=== PATIENT | female | born 1960 | race African-American/Black ===

== ENCOUNTER 2021-11-26 13:51 | Inpatient (IN) | payer OTHER ==
[2021-11-26] MEDS ORDERED: METHOCARBAMOL 500 MG TABLET PO PRN (15:20)
[2021-11-26] MEDS ORDERED: MAG HYDROX/AL HYDROX/SIMETH 30 ML UNIT-DOSE CUP PO PRN (15:20)
[2021-11-26] MEDS ORDERED: ONDANSETRON *ODT* 4 MG TABLET SL PRN (15:20)
[2021-11-26] MEDS ORDERED: MAGNESIUM HYDROX 2400MG/30ML ORAL SUSPENSION 30 ML CUP PO PRN (15:20)
[2021-11-26] MEDS ORDERED: chlordiazePOXIDE HCL 25 MG CAPSULE PO PRN (15:20)
[2021-11-26] MEDS ORDERED: ACETAMINOPHEN 325 MG TABLET (FP) PO PRN ×2 (15:20)
[2021-11-26] MEDS ORDERED: MAGNESIUM CITRATE 300 ML BOTTLE PO PRN (15:20)
[2021-11-26] MEDS ORDERED: NICOTINE 10 MG CARTRIDGE (INHALER) IH PRN (15:20)
[2021-11-26] MEDS ORDERED: MENTHOL/PHENOL 1 EACH UD MM PRN (15:20)
[2021-11-26] MEDS ORDERED: BISMUTH SUBSALICYLATE 524 MG/30 ML PO PRN (15:20)
[2021-11-26 16:51] VITALS: BMI 26.5
[2021-11-26] MEDS ORDERED: ALBUTEROL SO4 HFA INHALER IH PRN (17:23)
[2021-11-26] MEDS: IBUPROFEN 400 MG TABLET (FP) PO PRN (18:15)
[2021-11-26] MEDS: hydrOXYzine PAMOATE 25 MG CAPSULE (FP) PO SCH ×2 (18:16→22:38)
[2021-11-26] MEDS: chlordiazePOXIDE HCL 25 MG CAPSULE PO SCH ×2 (18:16→22:38)
[2021-11-26] MEDS: THIAMINE HCL 100 MG TABLET (FP) PO SCH (22:38)
[2021-11-26] MEDS: MELATONIN 5 MG TABLETS PO SCH (22:38)
[2021-11-26] MEDS: AMOXICILLIN 500 MG CAPSULE (FP) PO SCH (22:38)
[2021-11-27] MEDS: chlordiazePOXIDE HCL 25 MG CAPSULE PO SCH ×4 (07:16→22:13)
[2021-11-27] MEDS: hydrOXYzine PAMOATE 25 MG CAPSULE (FP) PO SCH ×5 (07:17→22:12)
[2021-11-27] MEDS: IBUPROFEN 400 MG TABLET (FP) PO PRN (08:45)
[2021-11-27] MEDS ORDERED: methaDONE HCL 10 MG TABLET PO ONE (09:46)
[2021-11-27] MEDS ORDERED: methaDONE 40 MG, methaDONE 20 MG PO ONE (10:00)
[2021-11-27] MEDS ORDERED: methaDONE HCL 10 MG TABLET ONE (10:27)
[2021-11-27] MEDS ORDERED: methaDONE HCL 40 MG DISPERSABLE TABLET ONE (10:28)
[2021-11-27] MEDS: AMOXICILLIN 500 MG CAPSULE (FP) PO SCH ×2 (10:30→22:12)
[2021-11-27] MEDS: PRENATAL VITAMINS W/ FOLIC ACID TABLET (FP) PO SCH (10:30)
[2021-11-27 10:51] LABS: HEMATOCRIT 41.4 % (32.4-45.2); HEMOGLOBIN 13.7 GM/dL (10.7-15.3); MCH 29.7 pg (25.7-33.7); MEAN CELL VOLUME 90.1 fl (80-96); MEAN PLT VOLUME 8.9 fl (7.5-11.1); PLATELET COUNT 234 10^3/uL (134-434); RBC 4.59 M/mm3 (3.60-5.2); RDW 14.9 % (11.6-15.6); WHITE BLOOD COUNT 6.8 K/mm3 (4.0-10.0)
[2021-11-27 11:07] LABS: CALCIUM 8.7 mg/dL (8.5-10.1)
[2021-11-27 11:08] LABS: ALBUMIN 2.6 g/dl (3.4-5.0); BLOOD UREA NITROGEN 12.9 mg/dL (7-18)
[2021-11-27 11:11] LABS: CREATININE 0.9 mg/dL (0.55-1.3)
[2021-11-27 11:12] LABS: BILIRUBIN,TOTAL 0.4 mg/dL (0.2-1); TOT PROT 6.8 g/dl (6.4-8.2)
[2021-11-27] MEDS ORDERED: DOCUSATE SODIUM 100 MG CAPSULE (FP) PO SCH (22:00)
[2021-11-27] MEDS: THIAMINE HCL 100 MG TABLET (FP) PO SCH (22:12)
[2021-11-27] MEDS: MELATONIN 5 MG TABLETS PO SCH (22:12)
[2021-11-28] MEDS ORDERED: methaDONE HCL 10 MG TABLET ONE (04:24)
[2021-11-28] MEDS ORDERED: methaDONE HCL 40 MG DISPERSABLE TABLET ONE (04:24)
[2021-11-28] MEDS: hydrOXYzine PAMOATE 25 MG CAPSULE (FP) PO SCH ×5 (05:54→22:38)
[2021-11-28] MEDS: chlordiazePOXIDE HCL 25 MG CAPSULE PO SCH ×4 (05:55→22:40)
[2021-11-28] MEDS: IBUPROFEN 400 MG TABLET (FP) PO PRN (05:56)
[2021-11-28] MEDS ORDERED: methaDONE HCL 10 MG TABLET PO ONE (06:00)
[2021-11-28] MEDS ORDERED: methaDONE 40 MG, methaDONE 30 MG PO ONE (06:00)
[2021-11-28] MEDS: PRENATAL VITAMINS W/ FOLIC ACID TABLET (FP) PO SCH (10:28)
[2021-11-28] MEDS: AMOXICILLIN 500 MG CAPSULE (FP) PO SCH ×2 (10:29→22:38)
[2021-11-28] MEDS: DOCUSATE SODIUM 100 MG CAPSULE (FP) PO SCH ×2 (12:53→22:38)
[2021-11-28] MEDS: MELATONIN 5 MG TABLETS PO SCH (22:38)
[2021-11-28] MEDS: THIAMINE HCL 100 MG TABLET (FP) PO SCH (22:38)
[2021-11-29] MEDS ORDERED: chlordiazePOXIDE HCL 10 MG CAPSULE PO PRN
[2021-11-29] MEDS: hydrOXYzine PAMOATE 25 MG CAPSULE (FP) PO SCH ×5 (05:46→22:33)
[2021-11-29] MEDS: chlordiazePOXIDE HCL 10 MG CAPSULE PO SCH ×4 (05:46→22:33)
[2021-11-29] MEDS: methaDONE HCL 40 MG DISPERSABLE TABLET PO SCH (05:50)
[2021-11-29] MEDS ORDERED: methaDONE HCL 10 MG TABLET PO SCH (06:00)
[2021-11-29] MEDS: DOCUSATE SODIUM 100 MG CAPSULE (FP) PO SCH ×2 (10:24→22:33)
[2021-11-29] MEDS: AMOXICILLIN 500 MG CAPSULE (FP) PO SCH ×3 (10:24→22:33)
[2021-11-29] MEDS: PRENATAL VITAMINS W/ FOLIC ACID TABLET (FP) PO SCH (10:24)
[2021-11-29] MEDS: THIAMINE HCL 100 MG TABLET (FP) PO SCH (22:33)
[2021-11-29] MEDS: MELATONIN 5 MG TABLETS PO SCH (22:33)
[2021-11-30] MEDS: methaDONE HCL 40 MG DISPERSABLE TABLET PO SCH (06:21)
[2021-11-30] MEDS: chlordiazePOXIDE HCL 10 MG CAPSULE PO SCH ×2 (06:22→17:34)
[2021-11-30] MEDS: hydrOXYzine PAMOATE 25 MG CAPSULE (FP) PO SCH ×5 (06:22→22:18)
[2021-11-30] MEDS: AMOXICILLIN 500 MG CAPSULE (FP) PO SCH ×3 (06:22→22:17)
[2021-11-30] MEDS: DOCUSATE SODIUM 100 MG CAPSULE (FP) PO SCH ×2 (10:22→22:17)
[2021-11-30] MEDS: PRENATAL VITAMINS W/ FOLIC ACID TABLET (FP) PO SCH (10:22)
[2021-11-30] MEDS: MELATONIN 5 MG TABLETS PO SCH (22:18)
[2021-11-30] MEDS: THIAMINE HCL 100 MG TABLET (FP) PO SCH (22:18)
[2021-12-01] MEDS ORDERED: chlordiazePOXIDE HCL 10 MG CAPSULE PO ONE (05:00)
[2021-12-01] MEDS: methaDONE HCL 40 MG DISPERSABLE TABLET PO SCH (05:50)
[2021-12-01] MEDS: AMOXICILLIN 500 MG CAPSULE (FP) PO SCH (05:51)
[2021-12-01] MEDS: hydrOXYzine PAMOATE 25 MG CAPSULE (FP) PO SCH (05:52)
[2021-12-01 09:51] VITALS: BP 140/82; PULSE 85; TEMP 97.1
== END 2021-12-01 10:31 | disposition home or self-care (01) | DRG 773 ==
LOC: YASAS 13:51 → Y3N 16:50
PROVIDERS: ADMIT Allergy & Immunology; ATTEND Allergy & Immunology
PROC: HZ2ZZZZ Detoxification Services for Substance Abuse Treatment (ICD-10-PCS; principal; 2021-11-26)
DX: F10.230 Alcohol dependence with withdrawal, uncomplicated (principal); F11.20 Opioid dependence, uncomplicated; F17.210 Nicotine dependence, cigarettes, uncomplicated; E88.09 Other disorders of plasma-protein metabolism, not elsewhere classified; J45.909 Unspecified asthma, uncomplicated; M27.2 Inflammatory conditions of jaws
CPT/HCPCS: 36415; 70100-TC-FY; 80053; 85027; 86780; C9803; U0003; U0005

== ENCOUNTER 2023-07-23 13:37 | Inpatient (IN) | payer OTHER ==
[2023-07-23 14:59] VITALS: BMI 21.9
[2023-07-23] MEDS ORDERED: DICYCLOMINE HCL 10 MG CAPSULE PO PRN (16:10)
[2023-07-23] MEDS ORDERED: IBUPROFEN 400 MG TABLET (FP) PO PRN (16:10)
[2023-07-23] MEDS ORDERED: ACETAMINOPHEN 325 MG TABLET (FP) PO PRN (16:10)
[2023-07-23] MEDS ORDERED: POLYETHYLENE GLYCOL (HEALTHYLAX) 3350 17 GM PACKET PO PRN (16:10)
[2023-07-23] MEDS ORDERED: LOPERAMIDE HCL 2 MG CAPSULE PO PRN (16:10)
[2023-07-23] MEDS ORDERED: BISMUTH SUBSALICYLATE 524 MG/30 ML PO PRN (16:10)
[2023-07-23] MEDS ORDERED: hydrOXYzine PAMOATE 25 MG CAPSULE (FP) PO PRN (16:10)
[2023-07-23] MEDS ORDERED: IBUPROFEN 600 MG TABLET (FP) PO PRN (16:10)
[2023-07-23] MEDS ORDERED: chlordiazePOXIDE HCL 25 MG CAPSULE PO PRN (16:10)
[2023-07-23] MEDS ORDERED: NALOXONE HCL (KLOXXADO) 8 MG SPRAY NS PRN (16:10)
[2023-07-23] MEDS ORDERED: ONDANSETRON *ODT* 4 MG TABLET SL PRN (16:10)
[2023-07-23] MEDS ORDERED: guaiFENesin 600 MG TABLET.ER (FP) PO PRN (16:10)
[2023-07-23] MEDS ORDERED: NALOXONE HCL 0.4 MG/ML VIAL IM PRN (16:10)
[2023-07-23] MEDS ORDERED: BENZONATATE 200 MG CAPSULE PO PRN (16:10)
[2023-07-23] MEDS ORDERED: BENZOCAINE/MENTHOL (CHLORASEPTIC ) LOZENGE MM PRN (16:10)
[2023-07-23] MEDS ORDERED: MAG HYDROX/AL HYDROX/SIMETH 30 ML UNIT-DOSE CUP PO PRN (16:10)
[2023-07-23] MEDS: METHOCARBAMOL 500 MG TABLET PO PRN (18:34)
[2023-07-23] MEDS: NICOTINE 7 MG/24 HOURS TOPICAL PATCH TD SCH (18:34)
[2023-07-23] MEDS: PRENATAL VITAMINS W/ FOLIC ACID TABLET (FP) PO SCH (18:35)
[2023-07-23] MEDS: MELATONIN 5 MG TABLETS PO SCH (22:11)
[2023-07-23] MEDS: DOCUSATE SODIUM 100 MG CAPSULE (FP) PO SCH (22:11)
[2023-07-23] MEDS: THIAMINE HCL 100 MG TABLET (FP) PO SCH (22:12)
[2023-07-23] MEDS: chlordiazePOXIDE HCL 25 MG CAPSULE PO SCH (22:12)
[2023-07-24] MEDS: chlordiazePOXIDE HCL 25 MG CAPSULE PO SCH ×4 (05:44→22:14)
[2023-07-24] MEDS ORDERED: methaDONE HCL 10 MG TABLET PO SCH (09:30)
[2023-07-24] MEDS ORDERED: methaDONE 40 MG, methaDONE 30 MG PO ONE (10:00)
[2023-07-24] MEDS: NICOTINE 7 MG/24 HOURS TOPICAL PATCH TD SCH (10:04)
[2023-07-24] MEDS: PRENATAL VITAMINS W/ FOLIC ACID TABLET (FP) PO SCH (10:04)
[2023-07-24 11:04] LABS: POTASSIUM 4.6 mmol/L (3.5-5.1)
[2023-07-24 11:06] LABS: HEMATOCRIT 41.3 % (32.4-45.2); HEMOGLOBIN 13.6 GM/dL (10.7-15.3); MCH 30.2 pg (25.7-33.7); MCHC 32.9 g/dl (32.0-36.0); MEAN CELL VOLUME 91.7 fl (80-96); PLATELET COUNT 253 10^3/uL (134-434); RDW 14.8 % (11.6-15.6); WHITE BLOOD COUNT 5.6 K/mm3 (4.0-10.0)
[2023-07-24 11:11] LABS: BLOOD UREA NITROGEN 15.3 mg/dL (7-18); CALCIUM 9.1 mg/dL (8.5-10.1)
[2023-07-24 11:13] LABS: CREATININE 0.7 mg/dL (0.55-1.3)
[2023-07-24 11:14] LABS: BILIRUBIN,TOTAL 0.6 mg/dL (0.2-1); TOT PROT 6.6 g/dl (6.4-8.2)
[2023-07-24] MEDS: DOCUSATE SODIUM 100 MG CAPSULE (FP) PO SCH (22:13)
[2023-07-24] MEDS: THIAMINE HCL 100 MG TABLET (FP) PO SCH (22:13)
[2023-07-24] MEDS: MELATONIN 5 MG TABLETS PO SCH (22:13)
[2023-07-25] MEDS: methaDONE 40 MG, methaDONE 30 MG PO SCH (05:26)
[2023-07-25] MEDS: chlordiazePOXIDE HCL 25 MG CAPSULE PO SCH ×4 (05:26→22:14)
[2023-07-25] MEDS: PRENATAL VITAMINS W/ FOLIC ACID TABLET (FP) PO SCH (10:08)
[2023-07-25] MEDS: NICOTINE 7 MG/24 HOURS TOPICAL PATCH TD SCH (10:10)
[2023-07-25] MEDS: MAGNESIUM HYDROX 2400MG/30ML ORAL SUSPENSION 30 ML CUP PO PRN (17:26)
[2023-07-25] MEDS: THIAMINE HCL 100 MG TABLET (FP) PO SCH (22:14)
[2023-07-25] MEDS: DOCUSATE SODIUM 100 MG CAPSULE (FP) PO SCH (22:14)
[2023-07-25] MEDS: MELATONIN 5 MG TABLETS PO SCH (22:14)
[2023-07-26] MEDS ORDERED: chlordiazePOXIDE HCL 10 MG CAPSULE PO PRN
[2023-07-26] MEDS: chlordiazePOXIDE HCL 10 MG CAPSULE PO SCH ×4 (05:33→22:07)
[2023-07-26] MEDS: methaDONE 40 MG, methaDONE 30 MG PO SCH (05:35)
[2023-07-26] MEDS ORDERED: LACTULOSE 20 GM/30 ML UDC (FOR ORAL USE ONLY) PO ONE (10:15)
[2023-07-26] MEDS: PRENATAL VITAMINS W/ FOLIC ACID TABLET (FP) PO SCH (10:25)
[2023-07-26] MEDS: NICOTINE 7 MG/24 HOURS TOPICAL PATCH TD SCH (10:25)
[2023-07-26 13:48] LABS: HIV INTERPRETATION NEGATIVE (NEGATIVE)
[2023-07-26] MEDS: ALBUTEROL SO4 HFA INHALER IH PRN ×2 (17:42→22:07)
[2023-07-26] MEDS: DOCUSATE SODIUM 100 MG CAPSULE (FP) PO SCH (22:07)
[2023-07-26] MEDS: THIAMINE HCL 100 MG TABLET (FP) PO SCH (22:07)
[2023-07-26] MEDS: MELATONIN 5 MG TABLETS PO SCH (22:07)
[2023-07-27] MEDS: chlordiazePOXIDE HCL 10 MG CAPSULE PO SCH ×2 (05:34→17:55)
[2023-07-27] MEDS: methaDONE 40 MG, methaDONE 30 MG PO SCH (05:35)
[2023-07-27] MEDS: ALBUTEROL SO4 HFA INHALER IH PRN (05:36)
[2023-07-27] MEDS ORDERED: LACTULOSE 20 GM/30 ML UDC (FOR ORAL USE ONLY) PO PRN (09:20)
[2023-07-27] MEDS ORDERED: DOCUSATE SODIUM 100 MG CAPSULE (FP) PO SCH (09:21)
[2023-07-27] MEDS: NICOTINE 7 MG/24 HOURS TOPICAL PATCH TD SCH (10:07)
[2023-07-27] MEDS: PRENATAL VITAMINS W/ FOLIC ACID TABLET (FP) PO SCH (10:07)
[2023-07-27] MEDS: MAGNESIUM HYDROX 2400MG/30ML ORAL SUSPENSION 30 ML CUP PO PRN (10:09)
[2023-07-27] MEDS: THIAMINE HCL 100 MG TABLET (FP) PO SCH (21:20)
[2023-07-27] MEDS: METHOCARBAMOL 500 MG TABLET PO PRN (21:20)
[2023-07-27] MEDS: MELATONIN 5 MG TABLETS PO SCH (21:20)
[2023-07-28] MEDS ORDERED: chlordiazePOXIDE HCL 10 MG CAPSULE PO ONE (05:00)
[2023-07-28] MEDS: methaDONE 40 MG, methaDONE 30 MG PO SCH (05:26)
[2023-07-28 06:37] VITALS: RESP 17
[2023-07-28] MEDS: ALBUTEROL SO4 HFA INHALER IH PRN (08:47)
[2023-07-28 09:20] VITALS: BP 112/78; PULSE 65; TEMP 97.4
[2023-07-28] MEDS: PRENATAL VITAMINS W/ FOLIC ACID TABLET (FP) PO SCH (10:24)
[2023-07-28] MEDS: NICOTINE 7 MG/24 HOURS TOPICAL PATCH TD SCH (10:25)
== END 2023-07-28 12:35 | disposition home or self-care (01) | DRG 773 ==
LOC: YASAS 13:37 → Y3N 16:48
PROVIDERS: ADMIT Allergy & Immunology; ATTEND Surgery
PROC: HZ2ZZZZ Detoxification Services for Substance Abuse Treatment (ICD-10-PCS; principal; 2023-07-23)
DX: F10.230 Alcohol dependence with withdrawal, uncomplicated (principal); F11.20 Opioid dependence, uncomplicated; F17.210 Nicotine dependence, cigarettes, uncomplicated; F19.24 Other psychoactive substance dependence with psychoactive substance-induced mood disorder; F31.9 Bipolar disorder, unspecified; G47.00 Insomnia, unspecified; J45.30 Mild persistent asthma, uncomplicated; K59.01 Slow transit constipation; Z91.199 Patient's noncompliance with other medical treatment and regimen due to unspecified reason
CPT/HCPCS: 36415; 80053; 85027; 86780; 87389; 87635